=== PATIENT | female | born 1970 | race Caucasian/White ===

== ENCOUNTER 2017-02-07 07:57 | Emergency (ER) | payer SELFPAY ==
[~2017-02-07 07:57] MED LIST: ANAPROX DS550 MG PO; AUGMENTIN 875 M1 TAB PO; AUGMENTIN 875875 MG PO; BACTRIM DS 8001 TA1 PO; CATAFLAM50 MG PO; CHEWABLE VITE1 CTB PO; CLARITIN-D 10 M1 T21 PO; CLINDAMYCIN HC300 MG PO; Claritin-D 10 M1 T24 PO; DAYPRO600 M1 PO; DIAZEPAM2 MG PO; DURICEF500 MG PO; FLEXERIL10 MG PO; FLEXERIL5 MG PO; FLINTSTONES COM1 CT1 PO; FLINTSTONES1 CTB PO; FLONASE 0.05% 121 EA NAS; HYDROCODONE BIT1 T11 PO; LOMOTIL 0.025 M1 TA1 PO; MOTRIN800 MG PO; MULTIPLE VITAMI1 CAP PO; MULTIPLE VITAMI1 TA2 PO; Motrin,Rufen800 MG PO; NATURE'S BLEND400 I1 PO; PHENERGAN W/ DE30 ML PO; PHENERGAN W/DM120 ML PO; PREDNICOT10 MG PO; PREDNICOT20 MG PO; PREDNISONE10 MG PO; ROBAXIN750 MG PO; TOBRAMYCIN 5 ML5 M1 OPH; TRAMADOL HCL50 MG PO; VIBRAMYCIN100 MG PO; VICODIN 5/500 505 MG PO; VISTARIL50 MG PO; ZITHROMAX Z PA250 MG PO; ZOFRAN ODT4 MG SL
[2017-02-07 08:02] VITALS: BP 160/100
== END 2017-02-07 09:31 | disposition home or self-care (01) ==
LOC: ED 07:57
DX: S46.912A Strain of unspecified muscle, fascia and tendon at shoulder and upper arm level, left arm, initial encounter (principal); Z88.8 Allergy status to other drugs, medicaments and biological substances; Z79.899 Other long term (current) drug therapy; X58.XXXA Exposure to other specified factors, initial encounter; Y93.89 Activity, other specified; Y92.89 Other specified places as the place of occurrence of the external cause; Y99.8 Other external cause status

== ENCOUNTER 2017-04-14 11:37 | Emergency (ER) | payer SELFPAY ==
[~2017-04-14] VITALS: Ht 170.1 cm; Wt 89.4 kg
[2017-04-14 11:56] VITALS: BP 124/66
[2017-04-14] MEDS ORDERED: NAPROSYN500 MG PO (11:59)
[2017-04-14] MEDS ORDERED: NORCO 5-325 TA1 EACH PO (13:13)
== END 2017-04-14 13:19 | disposition home or self-care (01) ==
LOC: ED 11:37
DX: S92.502A Displaced unspecified fracture of left lesser toe(s), initial encounter for closed fracture (principal); Z88.8 Allergy status to other drugs, medicaments and biological substances; I10 Essential (primary) hypertension

== ENCOUNTER 2017-07-12 10:39 | Emergency (ER) | payer SELFPAY ==
[~2017-07-12] VITALS: Ht 165.1 cm; Wt 90.7 kg
[~2017-07-12 10:39] MED LIST changes: +NAPROSYN500 MG PO; +NORCO 5-325 TA1 EACH PO
[2017-07-12 11:03] LABS: BILIRUBIN 1+ (NEGATIVE); BLOOD 3+ (NEGATIVE); CLARITY TURBID (CLEAR); COLOR BROWN (YELLOW); GLUCOSE NEGATIVE (NEGATIVE); KETONE TRACE (NEGATIVE); NITRITE POSITIVE (NEGATIVE); PH 6.5 (5.0-9.0); SPECIFIC GRAVITY >= 1.030 (1.005-1.030)
[2017-07-12 11:05] LABS: LEUKO ESTERASE TRACE (NEGATIVE)
[2017-07-12 11:21] LABS: RBC TNTC rbc/hpf (0-2)
[2017-07-12 11:47] LABS: BASO % 0.5 % (0.0-1.0); EOS # 0.1 10*3/uL (0.0-0.4); EOS % 1.2 % (1.0-4.0); HEMATOCRIT 38.4 % (37.0-47.0); HEMOGLOBIN 12.7 g/dl (12.0-16.0); LYMPH # 2.3 10*3/uL (1.3-4.4); LYMPH % 30.9 % (27.0-41.0); MEAN CELL VOLUME 87.7 fl (81.0-99.0); MEAN CORPUSCULAR HGB CONC 33.1 g/dl (33.0-37.0); MONO # 0.5 10*3/uL (0.1-1.0); MONO % 7.1 % (3.0-9.0); NEUT # 4.5 10*3/uL (2.3-7.9); NEUT % 59.9 % (47.0-73.0); PLATELET COUNT AUTOMATED 274 10*3/uL (130-400); RED BLOOD COUNT 4.38 10*6/uL (4.10-5.10); WHITE BLOOD COUNT 7.5 10*3/uL (4.8-10.8)
[2017-07-12 12:01] LABS: ALBUMIN 3.7 gm/dl (3.1-4.5); ALKALINE PHOSPHATASE 124 U/L (45-117); BUN 15 mg/dl (7-24); CHLORIDE 108 mmol/L (98-107); CREATININE 0.69 mg/dL (0.55-1.02); LIPASE 131 U/L (73-393); POTASSIUM 4.2 mmol/L (3.5-5.1); SGOT/AST 15 IU/L (3-35); SGPT/ALT 19 U/L (12-78); SODIUM 142 mmol/L (136-145); TOTAL PROTEIN 6.9 gm/dL (6.4-8.2)
[2017-07-12 13:16] VITALS: BP 123/71
[2017-07-12] MEDS ORDERED: CIPRO500 MG PO (13:50)
[2017-07-12] MEDS ORDERED: NORCO 5-325 TA1 EACH PO (13:52)
== END 2017-07-12 14:31 | disposition home or self-care (01) ==
LOC: ED 10:39
PROVIDERS: Physician Assistant
DX: N23 Unspecified renal colic (principal); N39.0 Urinary tract infection, site not specified; Z88.8 Allergy status to other drugs, medicaments and biological substances; Z79.899 Other long term (current) drug therapy

== ENCOUNTER → 2017-09-25 | Outpatient (CLI) | payer SELFPAY ==
[~2017-09-25] MED LIST changes: +CIPRO500 MG PO
[2017-09-25 10:03] LABS: BASO % 0.5 % (0.0-1.0); EOS # 0.2 10*3/uL (0.0-0.4); HEMATOCRIT 37.9 % (37.0-47.0); HEMOGLOBIN 12.3 g/dl (12.0-16.0); LYMPH # 2.3 10*3/uL (1.3-4.4); LYMPH % 28.4 % (27.0-41.0); MEAN CELL VOLUME 89.4 fl (81.0-99.0); MEAN CORPUSCULAR HGB CONC 32.5 g/dl (33.0-37.0); MEAN PLATELET VOLUME 9.6 fl (9.6-12.3); MONO # 0.7 10*3/uL (0.1-1.0); NEUT % 60.9 % (47.0-73.0); PLATELET COUNT AUTOMATED 295 10*3/uL (130-400); RED BLOOD COUNT 4.24 10*6/uL (4.10-5.10); RED CELL DISTRI WIDTH 12.9 % (0-14.5); WHITE BLOOD COUNT 8.1 10*3/uL (4.8-10.8)
[2017-09-25 10:23] LABS: BUN 19 mg/dl (7-24); CHLORIDE 107 mmol/L (98-107); CREATININE 0.85 mg/dL (0.55-1.02); POTASSIUM 4.7 mmol/L (3.5-5.1); SODIUM 142 mmol/L (136-145)
== END | disposition home or self-care (01) ==
LOC: LAB 09:45
PROVIDERS: Urology
DX: N21.1 Calculus in urethra (principal)

== ENCOUNTER 2017-12-21 20:28 | Emergency (ER) | payer SELFPAY ==
[~2017-12-21] VITALS: Ht 165.1 cm; Wt 86.2 kg
[2017-12-21 20:31] VITALS: BP 131/80
== END 2017-12-21 21:25 | disposition home or self-care (01) ==
LOC: ED 20:28
DX: S63.692A Other sprain of right middle finger, initial encounter (principal); Z79.899 Other long term (current) drug therapy; Z98.890 Other specified postprocedural states; Z88.8 Allergy status to other drugs, medicaments and biological substances; X50.1XXA Overexertion from prolonged static or awkward postures, initial encounter; Y93.89 Activity, other specified; Y92.89 Other specified places as the place of occurrence of the external cause; Y99.9 Unspecified external cause status

== ENCOUNTER 2019-08-09 04:49 | Emergency (ER) | payer SELFPAY ==
[~2019-08-09] VITALS: Ht 167.6 cm; Wt 90.7 kg
[2019-08-09 04:55] VITALS: BP 131/78
== END 2019-08-09 05:41 | disposition home or self-care (01) ==
LOC: ED 04:49
DX: M79.672 Pain in left foot (principal); Z79.899 Other long term (current) drug therapy; Z88.8 Allergy status to other drugs, medicaments and biological substances

== ENCOUNTER 2020-04-18 14:18 | Emergency (ER) | payer BC ==
[~2020-04-18] VITALS: Wt 90.7 kg
[2020-04-18 14:34] VITALS: BP 145/90
[2020-04-18] MEDS ORDERED: AUGMENTIN 875875 MG PO (15:11)
[2020-04-18] MEDS ORDERED: ZYRTEC10 M3 PO (15:11)
[2020-04-18] MEDS ORDERED: FLONASE ALLERG9.9 ML NAS (15:11)
== END 2020-04-18 15:13 | disposition home or self-care (01) ==
LOC: ED 14:18
DX: J01.90 Acute sinusitis, unspecified (principal); Z79.899 Other long term (current) drug therapy

== ENCOUNTER → 2021-05-18 | Outpatient (CLI) | payer BC ==
[~2021-05-18] MED LIST changes: +FLONASE ALLERG9.9 ML NAS; +ZYRTEC10 M3 PO
== END | disposition home or self-care (01) ==
LOC: US 05-05 09:30
PROVIDERS: ATTEND Surgery
DX: R10.9 Unspecified abdominal pain (principal)

== ENCOUNTER → 2021-05-21 | Day surgery (SDC) | payer BC ==
[~2021-05-21] VITALS: Ht 167.6 cm; Wt 95.3 kg
[~2021-05-21] MED LIST changes: +CARAFATE1 G1 PO; +PROTONIX40 MG PO
[2021-05-21 09:15] VITALS: BP 137/88
[2021-05-21 10:20] VITALS: BP 107/71
[2021-05-21 10:35] VITALS: BP 133/81
[2021-05-21 10:50] VITALS: BP 114/79
[2021-05-21 12:48] VITALS: BP 107/71
== END | disposition home or self-care (01) ==
LOC: SDC 05-18 09:30
PROVIDERS: ATTEND Surgery
DX: R10.9 Unspecified abdominal pain (principal); K29.70 Gastritis, unspecified, without bleeding; K21.9 Gastro-esophageal reflux disease without esophagitis; Z98.84 Bariatric surgery status; Z88.1 Allergy status to other antibiotic agents; Z88.8 Allergy status to other drugs, medicaments and biological substances; Z79.899 Other long term (current) drug therapy; Z20.822 Contact with and (suspected) exposure to COVID-19

== ENCOUNTER → 2021-10-05 | Outpatient (CLI) | payer BC | END | disposition home or self-care (01) | LOC: CARD 15:02 | PROVIDERS: ATTEND Orthopaedic Surgery Hand Surgery | DX: Z01.818 Encounter for other preprocedural examination (principal); R94.31 Abnormal electrocardiogram [ECG] [EKG]; M19.041 Primary osteoarthritis, right hand ==

== ENCOUNTER 2022-04-07 17:15 | Emergency (ER) | payer BC ==
[~2022-04-07] VITALS: Ht 165.1 cm; Wt 90.7 kg
[2022-04-07 17:41] VITALS: BP 153/75
[2022-04-07] MEDS ORDERED: PREDNISONE20 M1 PO (18:46)
[2022-04-07] MEDS ORDERED: VALTREX1000 MG PO (18:46)
== END 2022-04-07 19:28 | disposition home or self-care (01) ==
LOC: ED 17:15
DX: B02.9 Zoster without complications (principal); Z88.8 Allergy status to other drugs, medicaments and biological substances; Z79.899 Other long term (current) drug therapy; Z98.890 Other specified postprocedural states

== ENCOUNTER → 2022-12-30 | Outpatient (CLI) | payer BC ==
[~2022-12-30] MED LIST changes: +PREDNISONE20 M1 PO; +VALTREX1000 MG PO
== END | disposition home or self-care (01) ==
LOC: MAMMO 12:59
PROVIDERS: ATTEND Internal Medicine
DX: Z12.31 Encounter for screening mammogram for malignant neoplasm of breast (principal); N64.9 Disorder of breast, unspecified; N63.23 Unspecified lump in the left breast, lower outer quadrant

== ENCOUNTER 2023-06-19 19:51 | Emergency (ER) | payer BC ==
[~2023-06-19] VITALS: Ht 165.1 cm; Wt 90.7 kg
[2023-06-19 20:20] VITALS: BP 165/96
== END 2023-06-19 22:21 | disposition home or self-care (01) ==
LOC: ED 19:51
DX: S49.92XA Unspecified injury of left shoulder and upper arm, initial encounter (principal); K21.9 Gastro-esophageal reflux disease without esophagitis; Z88.8 Allergy status to other drugs, medicaments and biological substances; Z98.890 Other specified postprocedural states; X58.XXXA Exposure to other specified factors, initial encounter; Y93.89 Activity, other specified; Y92.89 Other specified places as the place of occurrence of the external cause; Y99.8 Other external cause status

== ENCOUNTER → 2024-02-21 | Outpatient (CLI) | payer BC | END | disposition home or self-care (01) | LOC: RAD 13:35 | PROVIDERS: ATTEND Internal Medicine | DX: M25.551 Pain in right hip (principal) ==

== ENCOUNTER 2024-04-02 18:40 | Emergency (ER) | payer BC ==
[~2024-04-02] VITALS: Wt 82.2 kg
[2024-04-02 19:12] VITALS: BP 152/93
[2024-04-02] MEDS ORDERED: Dicyclomine Hydrochloride 20 MG/10 ML OSYR PO STA (19:48)
[2024-04-02] MEDS ORDERED: Lidocaine Hydrochloride 15 ML UDC PO STA (19:48)
[2024-04-02] MEDS ORDERED: MG-AL HYDROXIDE/SIMETICONE 30 ML UDC PO STA (19:48)
[2024-04-02] MEDS ORDERED: PROTONIX40 MG PO (20:39)
== END 2024-04-02 20:43 | disposition home or self-care (01) ==
LOC: ED 18:40
DX: K21.9 Gastro-esophageal reflux disease without esophagitis (principal); R11.0 Nausea; Z88.8 Allergy status to other drugs, medicaments and biological substances; Z98.890 Other specified postprocedural states

== ENCOUNTER 2025-03-05 23:33 | Emergency (ER) | payer BC ==
[~2025-03-05] VITALS: Ht 165.1 cm; Wt 81.6 kg
[2025-03-05 23:53] VITALS: BP 170/95
[2025-03-06 00:01] LABS: BASO # 0.1 10*3/uL (0.0-0.1); BASO % 0.9 % (0.0-1.0); EOS # 0.1 10*3/uL (0.0-0.4); EOS % 1.6 % (1.0-4.0); MEAN CELL VOLUME 76.5 fl (81.0-99.0); MEAN CORPUSCULAR HGB 22.8 pg (27.0-31.0); MEAN PLATELET VOLUME 9.8 fl (9.6-12.3); MONO # 0.7 10*3/uL (0.1-1.0); MONO % 8.1 % (3.0-9.0); NEUT # 4.1 10*3/uL (2.3-7.9); NEUT % 50.5 % (47.0-73.0); NUCLEATED RED BLOOD CELL 0.0 % (0.0-0.0); NUCLEATED RED BLOOD CELL 0.0 10*3/uL (0.0-0.0); PLATELET COUNT AUTOMATED 318 10*3/uL (130-400); RED CELL DISTRI WIDTH 15.5 % (0-14.5)
[2025-03-06 00:23] LABS: BUN 22 mg/dl (9-23)
[2025-03-06] MEDS ORDERED: NAPROXEN250 MG PO (02:15)
== END 2025-03-06 02:22 | disposition home or self-care (01) ==
LOC: ED 23:33
PROVIDERS: Internal Medicine
DX: R07.89 Other chest pain (principal); D53.9 Nutritional anemia, unspecified; K21.9 Gastro-esophageal reflux disease without esophagitis; Z98.890 Other specified postprocedural states; Z88.8 Allergy status to other drugs, medicaments and biological substances